=== PATIENT | male | born 1975 | race Two or more races ===

== ENCOUNTER 2025-08-13 21:54 | Emergency (ER) | payer OTHER ==
[~2025-08-13] VITALS: Ht 186.7 cm; Wt 127.9 kg
[2025-08-13] MEDS ORDERED: DIOVAN320 MG PO (22:21)
[2025-08-13] MEDS ORDERED: CARVEDILOL12.5 MG (22:22)
[2025-08-13] MEDS ORDERED: LIPITOR20 MG PO (22:22)
[2025-08-13] MEDS ORDERED: HYDROCHLOROTHIA25 MG PO (22:24)
[2025-08-13] MEDS ORDERED: DILTIAZEM ER180 M3 PO (22:24)
[2025-08-14 01:51] LABS: URINE APPEARANCE Clear; URINE BILIRRUBIN Negative (NEGATIVE); URINE BLOOD Negative; URINE COLOR Yellow; URINE GLUCOSE Negative (NEGATIVE); URINE KETONE Trace (NEGATIVE); URINE LEUKOCYTE Negative; URINE NITRATE Negative; URINE PROTEIN Trace (NEGATIVE); URINE UROBILINOGEN 0.2 E.U./dl
[2025-08-14 01:54] LABS: URINE BACTERIA 25.1 uL (0.0-1933); URINE CAST 1.41 uL (0.0-1.40); URINE EPITHELIAL CELLS 3.8 uL (0.0-38.8); URINE RBC 2.8 uL (0.0-20.8)
[2025-08-14 02:00] LABS: URINE WBC 1.6 uL (0.0-23.2)
[2025-08-14 02:02] LABS: BASO % 0.8 % (0.1-1.2); EOS # 0.25 (0.04-0.54); EOS % 3.8 % (0.7-7.0); LYMPH # 3.33 (1.18-3.74); LYMPH % 51.1 % (19.3-53.1); MEAN PLATELET VOLUME 10.40 fl (9.4-12.4); MONO # 0.37 (0.24-0.82); MONO % 5.7 % (4.7-12.5); NEUT # 2.51 (1.56-6.13); NEUT % 38.4 % (34.0-71.1); RED CELL DISTRIBUTION WIDTH 14.0 % (11.6-14.4)
[2025-08-14 02:19] LABS: COVID-19 AG NEGATIVE (NEGATIVE)
[2025-08-14 02:41] LABS: EOSINOPHIL MAN 2.0 %; LYMPHOCYTE MAN 42.0 %; MONOCYTE MAN 5.0 %; NEUTROPHILS MAN 46.0 %
[2025-08-14 02:52] LABS: BUN CREA RATIO 9.0 (7.0-25.0); GFR 13.74; GLUCOSE FASTING 105.0 mg/dL (65-100); OSMOLALITY SERUM 278.0 MOSM/KG (275-295)
[2025-08-14 02:58] LABS: CREATININE SERUM 4.59 mg/dL (0.70-1.30)
== END 2025-08-14 04:44 | disposition home or self-care (01) ==
LOC: ER 21:54
PROVIDERS: General Practice
DX: J02.8 Acute pharyngitis due to other specified organisms (principal); B34.9 Viral infection, unspecified; Z88.0 Allergy status to penicillin; Z91.040 Latex allergy status; Z20.822 Contact with and (suspected) exposure to COVID-19; I10 Essential (primary) hypertension